=== PATIENT | female | born 1945 | race Caucasian/White ===

== ENCOUNTER → 2016-07-02 | Outpatient (CLI) | payer MEDICARE, OTHER | LOC: GMA 12:52 | PROVIDERS: ATTEND Nurse Practitioner Family | DX: R53.83 Other fatigue (principal) ==

== ENCOUNTER → 2016-08-01 | Outpatient (CLI) | payer MEDICARE, OTHER ==
--- NOTE | 2016-08-01 16:15 | US ---
EXAM DESCRIPTION: MAMMO BREAST DIAGNOSTIC BILATERAL; US BREAST UNILATERAL Images were reviewed with R2 computer-aided detection. CLINICAL HISTORY: Mother with history of breast malignancy. Palpable left axillary tail nodule. COMPARISON: 2014. FINDINGS: Glandular tissue is nodular in contour and of the increased mammographic density. Focal increasing asymmetry left breast 1 o'clock retroglandular tissue is further evaluated with true lateral and spot compression films. Mammographic asymmetry partially effaces with morphology more consistent with the 2014 exam. Directed ultrasound exam demonstrates the calcification within the right breast and adjacent normal fibroglandular tissue. No sonographically suspicious finding. In the region of clinical concern in the axilla, the palpable area corresponds to a subcutaneous gland whose duct is visible extending to the epidermis and appears slightly enlarged. Associated complication is not shown. IMPRESSION: Benign exam. No mammographic or sonographic evidence for malignancy. Mammographic asymmetry left breast 12 o'clock corresponds to normal fibroglandular tissue and appears grossly stable on spot films since 2014. The region of clinical concern appears related to an a blocked sweat gland or hair follicle. The patient was advised to place a warm compress to the area several times a day. No complication is noted. BIRAD CATEGORY: 2 BENIGN RECOMMENDATION: FOLLOW-UP: Routine annual mammography. Findings and recommendations were communicated to the patient by the technologist. According to the [employer], yearly mammograms are recommended starting at age 40 and continuing as long as a woman is in good health. Any breast change noted on a breast self-exam should be reported promptly to the patient's healthcare provider. Breast MRI is recommended for women with an approximately 20-25% or greater lifetime risk of breast cancer, including women with a strong family history of breast or ovarian cancer and women who have been treated for Hodgkin's disease. Electronically signed by: Sharon Wilson 08/01/2016 16:13
== END | disposition home or self-care (01) ==
LOC: MAMMO 14:29
PROVIDERS: ATTEND Nurse Practitioner Family
DX: N63 Unspecified lump in breast (principal)
CPT/HCPCS: 76641; 77051; G0204

== ENCOUNTER 2018-01-24 03:29 | Emergency (ER) | payer MEDICARE, OTHER ==
[2018-01-24] MEDS ORDERED: AMIODARONE HCL 150 MG/3 ML VIAL IVPB ONE ×2 (03:37→03:57)
[2018-01-24] MEDS ORDERED: DEXTROSE 5% 100ML 100 ML IVPB ONE ×2 (03:38→03:57)
[2018-01-24] MEDS ORDERED: DEXTROSE 5% 250ML 0 ML ONE (03:38)
[2018-01-24] MEDS ORDERED: AMIODARONE IV (LOAD) 150 MG in DEXTROSE 5% 100ML 100 ML IVPB ONE ×2 (03:44→04:10)
[2018-01-24] MEDS ORDERED: MIDAZOLAM INJ 5 MG/5 ML VIAL ONE (03:57)
[2018-01-24] MEDS ORDERED: FUROSEMIDE INJ 40 MG/4 ML VIAL ONE (04:04)
[2018-01-24] MEDS ORDERED: FUROSEMIDE INJ 40 MG/4 ML VIAL IV ONE ×2 (04:10→08:18)
--- NOTE | 2018-01-24 04:23 | ED.PDOC ---
History of Present Illness - General Source: patient, family Exam Limitations: clinical condition - History of Present Illness Initial Comments: patient comes in saying with sudden onset of severe shortness of breath. Patient had been in her usual health yesterday evening with no cough, congestion , fever, or chills. She had no pedal edema and no chest pain. Patient was resting when suddenly sat up and could not breathe. The patient became diaphoretic with some associated nausea but no chest pain. Patient has never felt like this before and has no respiratory diseases that her or her are aware of. Patient has no coronary artery disease. Patient smoked for a couple of years in her youth but not since and has no history of COPD. Timing/Duration: 1/2 hour Severity: severe Activities at Onset: rest Possible Cause: no prior episodes Improving Factors: nothing Worsening Factors: nothing Associated Symptoms: lightheadedness Respiratory Risk Factors: no cause identified <KHADIJAH PHAM - Last Filed: 01/24/18 06:48> <Reuben Rivera - Last Filed: 01/24/18 08:57> - General Chief Complaint: Respiratory Problem Stated Complaint: shortness of breath Time Seen by Provider: 01/24/18 04:10 - History of Present Illness Allergies/Adverse Reactions: Allergies Prochlorperazine [From Compazine] Allergy (Verified 01/24/18 03:39) Home Medications: Ambulatory Orders Amlodipine Besylate 5 mg PO DAILY 01/24/18 Atorvastatin Calcium [Lipitor] 20 mg PO DAILY 01/24/18 BuPROPion XL [Wellbutrin XL] 150 mg PO DAILY 01/24/18 Bupropion HCl [Wellbutrin Xl] 300 mg PO DAILY 01/24/18 Estradiol 1 mg PO DAILY 01/24/18 Lisinopril 40 mg PO DAILY 01/24/18 Mirtazapine 45 mg PO DAILY 01/24/18 Risperidone 2 mg PO BEDTIME 01/24/18 Saxagliptin-Metformin HCl [Kombiglyze Xr 5-1000 mg] 5 - 1,000 mg PO DAILY Review of Systems - Review of Systems Constitutional: States: diaphoresis, weakness EENTM: States: no symptoms reported Respiratory: States: short of breath Cardiology: Denies: chest pain, edema, palpitations Gastrointestinal/Abdominal: States: no symptoms reported, constipation, diarrhea , nausea. Denies: vomiting Genitourinary: States: no symptoms reported Musculoskeletal: States: no symptoms reported Skin: States: no symptoms reported Neurological: States: no symptoms reported <KHADIJAH PHAM - Last Filed: 01/24/18 06:48> Past Medical History (General) - Patient Medical History Hx Stroke: No Hx of COPD: No Hx Cardiac Disorders: No Hx Congestive Heart Failure: No Hx Hypertension: No Hx Thyroid Disease: No Hx Diabetes: Yes <KHADIJAH PHAM - Last Filed: 01/24/18 06:48> Family Medical History - Family History Mother Family History: Unknown <KHADIJAH PHAM - Last Filed: 01/24/18 06:48> Physical Exam - Physical Exam General Appearance: Frail, Obvious distress, Ill Appearing Eyes, Ears, Nose, Throat Exam: PERRL/EOMI, normal ENT inspection, TMs normal Neck: non-tender, full range of motion, supple, normal inspection Respiratory: chest non-tender, crackles - in all lung fitzgerald worse at bilateral bases Cardiovascular/Chest: tachycardia Peripheral Pulses: radial,right: 2+, radial,left: 2+ Gastrointestinal/Abdominal: normal bowel sounds, non tender, soft Neurologic: alert, oriented x 3 <KHADIJAH PHAM - Last Filed: 01/24/18 06:48> Progress - Progress Progress: 01/24/18 04:24 On arrival patient had HR 148 in respiratory distress with runs of Vtach. Patient was diaphoretic and severely short of breath. EKG showed runs of Vtach with SVT. Carotid massage and sahara robert was attempted while IV access and monitoring was obtained. Amiodorone 150 mg was ordered and started. However, the patient sat up suddenly and pulled out her IV with approximately half the medication going in. Patient had IV restarted and another 150 mg ordered and pads were placed for possible cardioversion if needed. HR began to slow to 120 and was sinus tachycardia. Lasix 40 mg IV was ordered and given. Chest Xray was obtained and showed pulmonary edema. Patient began to improve with HR of 126 and O2 sats in the high 80s to 90 on NRB. 01/24/18 04:37 D-Dimer was called back and was elevated. Patient is improving but still not stable enough to go to CT scan. 01/24/18 04:55 01/24/18 06:33 Patient doing much better. O2 sats 90%, HR 88, and 2 L of urine output with lungs with crackles at the bases only Will proceed with CT scan for possible PE 01/24/18 06:48 01/24/18 03:42 Telemetry .ONCE EKG Stat Pulse Ox Stat 01/24/18 04:21 Catheter:Brooks QSHIFT 01/24/18 04:46 URINE CULTURE W/COLONY COUNT Stat 01/24/18 06:31 CTA Chest [CT] Stat Laboratory Results WBC 11.7 K/mm3 (4.8-10.8) H 01/24/18 03:42 RBC 4.46 M/mm3 (4.20-5.40) 01/24/18 03:42 Hgb 13.7 gm/dL (12.0-16.0) 01/24/18 03:42 Hct 42.5 % (36.0-47.0) 01/24/18 03:42 MCV 95.3 fl (81.0-99.0) 01/24/18 03:42 MCH 30.6 pg (27.0-31.0) 01/24/18 03:42 MCHC 32.1 g/dL (33.0-37.0) L 01/24/18 03:42 RDW 14.0 % (11.5-14.5) 01/24/18 03:42 Plt Count 283 K/mm3 (130-400) 01/24/18 03:42 MPV 7.8 fl (7.40-10.4) 01/24/18 03:42 Absolute Neuts (auto) 3.70 K/uL (1.8-6.8) 01/24/18 03:42 Absolute Lymphs (auto) 6.70 K/uL (1.0-3.4) H 01/24/18 03:42 Absolute Monos (auto) 1.00 K/uL (0.2-0.8) H 01/24/18 03:42 Absolute Eos (auto) 0.20 K/uL (0.0-0.4) 01/24/18 03:42 Absolute Basos (auto) 0.10 K/uL (0.0-0.1) 01/24/18 03:42 Neutrophils % 31.8 % (42.0-78.0) L 01/24/18 03:42 Lymphocytes % 57.4 % (20.0-50.0) H 01/24/18 03:42 Monocytes % 8.4 % (2.0-9.0) 01/24/18 03:42 Eosinophils % 1.5 % (1.0-5.0) 01/24/18 03:42 Basophils % 0.9 % (0.0-2.0) 01/24/18 03:42 PT 8.9 SECONDS (9.3-10.7) L 01/24/18 03:42 INR < 0.90 (0.9-1.15) L 01/24/18 03:42 PTT (SP) 21.2 SECONDS (21.8-31.6) L 01/24/18 03:42 D-Dimer, Quantitative 1.40 mg/L FEU (0-0.49) H* 01/24/18 03:42 Sodium 143 mmol/L (135-145) 01/24/18 03:42 Potassium 3.6 mmol/L (3.6-5.0) 01/24/18 03:42 Chloride 106 mmol/L (101-111) 01/24/18 03:42 Carbon Dioxide 20 mmol/L (21-31) L 01/24/18 03:42 Anion Gap 20.6 (12-18) H 01/24/18 03:42 BUN 16 mg/dL (7-18) 01/24/18 03:42 Creatinine 0.82 mg/dL (0.6-1.3) 01/24/18 03:42 BUN/Creatinine Ratio 19.5 (10-20) 01/24/18 03:42 Random Glucose 272 mg/dL (70-105) H 01/24/18 03:42 Serum Osmolality 295.8 mOsm/L (275-295) H 01/24/18 03:42 Calcium 8.9 mg/dL (8.4-10.2) 01/24/18 03:42 Magnesium 2.1 mg/dL (1.8-2.5) 01/24/18 03:42 Creatine Kinase 72 IU/L (26-140) 01/24/18 03:42 CK-MB (CK-2) 3.3 ng/mL (0.0-4.4) 01/24/18 03:42 CK-MB (CK-2) % Not Reportable 01/24/18 03:42 Troponin I < 0.02 ng/mL (0.01-0.05) 01/24/18 03:42 B-Natriuretic Peptide 1020.0 pg/ml (0-100) H* 01/24/18 03:42 Urine Color Yellow (Yellow) 01/24/18 04:46 Urine Appearance Sl cloudy (Clear) 01/24/18 04:46 Urine pH 5.5 (4.5-7.8) 01/24/18 04:46 Ur Specific [place] 1.020 (1.005-1.030) 01/24/18 04:46 Urine Protein 30 mg/dL 01/24/18 04:46 Urine Glucose (UA) 100 mg/dL (Negative) H 01/24/18 04:46 Urine Ketones Negative mg/dL (NEGATIVE) 01/24/18 04:46 Urine Blood Negative (Negative) 01/24/18 04:46 Urine Nitrite Negative 01/24/18 04:46 Urine Bilirubin Negative (NEGATIVE) 01/24/18 04:46 Urine Urobilinogen 0.2 mg/dL (0.2-1.0) 01/24/18 04:46 Ur Leukocyte Esterase Trace (Negative) H 01/24/18 04:46 Urine RBC 0-1 /hpf 01/24/18 04:46 Urine WBC 10-20 /hpf H 01/24/18 04:46 Ur Epithelial Cells 20-30 /hpf 01/24/18 04:46 Urine Bacteria 3+ H 01/24/18 04:46 Patient Name: MICHELLE GOODWIN Gender: Female Date of : 1945 Referring Physician: KHADIJAH PHAM Organization: [facility] Accession Number: [id number] Requested Date: January 24, 2018 03:40 Report Status: Final Requested Procedure: 1 Procedure Description: Chest,1 View Modality: CR Findings Reporting MD: Romel Trejo Fellow MD: Not available Dictation Time: Machine Bander And Cellophaner Helper: Not available Quality Control Microbiology Supervisor Date: EXAM DESCRIPTION: Single view of the chest CLINICAL HISTORY: shortness of breath COMPARISON: 09/11/2008 FINDINGS: Single frontal view of the chest. The cardiomediastinal silhouette has normal size and contour. Diffuse bilateral interstitial and alveolar opacities with confluence airspace opacities in the lung bases. No pneumothorax. Leads overlie the chest. Postoperative change of the thoracic and lumbar spine. Upper abdominal soft tissues are unremarkable. IMPRESSION: 1. Bilateral interstitial and alveolar opacities. These findings could be seen with pulmonary edema. Underlying pneumonic process not excluded. Continued radiographic follow-up recommended. Electronically signed by: Romel Trejo 01/24/2018 4:22 AM <KHADIJAH PHAM - Last Filed: 01/24/18 06:48> - Progress Progress: 01/24/18 08:48 the patient is a 72-year-old female presenting to the emergency room secondary to acute onset shortness of breath with acute respiratory distress due to acute onset pulmonary edema with background right middle lobe pneumonia. The patient has improved significantly with oxygenation and diuresis. She has diuresed approximately 2-1/2 L since her arrival here. She is now able to lie back almost flat without getting significantly short of breath. She still does have significant rales at the bases and at the right middle lobe. She is breathing much more easily and respiratory distress has improved greatly. Blood culture has been performed. Second set of cardiac enzymes are being performed to make sure we are not missing an acute DE. She is on a heparin drip for right now. She has had no chest pain or palpitations throughout the whole time. No further doses of amiodarone have been required. She does have a mild sinus tachycardia. Repeat EKG shows sinus tachycardia with left atrial dilation and poor R-wave progression in anterior leads as well as RSR prime in lateral leads. This is likely most consistent with a left bundle branch block. No definitive acute evidence of ischemia. We have no previous EKGs to compare to. The patient is being transferred for higher level of care. She would benefit from being evaluated by cardiology as her presentation is obviously significantly different than her known previous cardiac pathology. additionally as per Dr. Pham's note the patient did originally presented with episodes of V. tach and SVT. It is uncertain if the arrhythmia caused the patient's decompensation or if the hypoxia caused the arrhythmia. critical care time spent by me on this patient for respiratory distress, pulmonary edema and pneumonia with near respiratory failure, including time spent with counseling of the patient and her family and in making arrangements for transfer to higher level of care is 40 minutes. 01/24/18 08:54 - Results/Orders Results/Orders: CT angiogram of the chest shows a right middle lobe pneumonia, cardiomegaly with small pericardial effusion, no definable acute aortic pathology, diffuse pulmonary edema, no evidence of pulmonary emboli. <Reuben Rivera - Last Filed: 01/24/18 08:57> Departure <KHADIJAH PHAM - Last Filed: 01/24/18 06:48> <Reuben Rivera - Last Filed: 01/24/18 08:57> - Departure Clinical Impression: Paroxysmal SVT (supraventricular tachycardia), V-tach, Respiratory distress, Acute pulmonary edema, Cystitis Right middle lobe pneumonia Qualifiers: Pneumonia type: due to unspecified organism Qualified Code(s): J18.1 - Lobar pneumonia, unspecified organism Disposition: Transfer to Hospital Home Medications: Ambulatory Orders Amlodipine Besylate 5 mg PO DAILY 01/24/18 Atorvastatin Calcium [Lipitor] 20 mg PO DAILY 01/24/18 BuPROPion XL [Wellbutrin XL] 150 mg PO DAILY 01/24/18 Bupropion HCl [Wellbutrin Xl] 300 mg PO DAILY 01/24/18 Estradiol 1 mg PO DAILY 01/24/18 Lisinopril 40 mg PO DAILY 01/24/18 Mirtazapine 45 mg PO DAILY 01/24/18 Risperidone 2 mg PO BEDTIME 01/24/18 Saxagliptin-Metformin HCl [Kombiglyze Xr 5-1000 mg] 5 - 1,000 mg PO DAILY Critical Care Note - Critical Care Note Total Time (mins): 75 Comments: Patient had doctor at bedside for first 30 min of arrival and subsequently >70 directly associated with her care. She was in respiratory distress and needed immediate assistance and medical treatment to prevent cardiovascular collapse. <KHADIJAH PHAM - Last Filed: 01/24/18 06:48>
[2018-01-24] MEDS ORDERED: HEPARIN SODIUM (PORCINE) 5,000 U/ML VIAL IV ONE (04:34)
[2018-01-24] MEDS ORDERED: HEPARIN PREMIX 25,000 UNITS in PREMIX BAG 1 BAG IVS ONE (05:16)
[2018-01-24] MEDS ORDERED: HEPARIN PREMIX 500 ML ONE (05:20)
[2018-01-24] MEDS ORDERED: ONDANSETRON ODT 8 MG TAB ONE (06:17)
[2018-01-24] MEDS ORDERED: ONDANSETRON ODT 8 MG TAB SL ONE (06:18)
--- NOTE | 2018-01-24 08:06 | CT ---
EXAM DESCRIPTION: CTA Chest CLINICAL HISTORY: 72 years, Female, elevated D dimer with SOB COMPARISON: Chest x-ray January 24, 2019 TECHNIQUE: CT pulmonary angiography is performed with thin-section multi detector technique during rapid bolus administration of routine adult dose of nonionic iodinated IV contrast media. Multiplanar reformatted images are reviewed along with source images and maximum intensity projection three dimensional images which were created on a separate dedicated workstation and are stored in the patient's medical record. FINDINGS: Normal enhancement of pulmonary arteries. Normal enhancement of cardiac chambers. The heart is enlarged. Small pericardial effusion. Early enhancement of the aorta is negative for aneurysm or dissection. Lung window images reveal extensive bilateral pulmonary infiltrates. In the upper lobes, the infiltrates are more groundglass in density suggesting pulmonary edema. However there is dense consolidation in the right middle lobe more consistent with pneumonia. Patchy infiltrates in the lung bases may be a combination of pneumonia and pulmonary edema. Follow-up with chest x-rays after therapy. Small pericardial effusion is also present. Small pleural effusions are present bilaterally. In the upper abdomen, upper abdominal viscera are unremarkable. No chest wall mass or rib fracture. No axillary or lower cervical adenopathy. Dextroscoliosis is seen with multilevel discal calcification. Orthopedic hardware is seen in the T-spine. Coronal and sagittal reformatted MIP images confirm normal pulmonary arterial enhancement. Oblique MIP images confirm normal enhancement of the pulmonary arteries. IMPRESSION: Negative for evidence of pulmonary embolic disease. Large heart with extensive bilateral pulmonary infiltrates/edema. See above. This exam was performed according to our departmental dose-optimization program, which includes automated exposure control, adjustment of the mA and/or kV according to patient size and/or use of iterative reconstruction technique. Total DLP equals 368.14 mGycm. Electronically signed by: Mannie Paz MD 01/24/2018 8:04 AM CDT
[2018-01-24] MEDS ORDERED: AZITHROMYCIN IV 500 MG in SODIUM CHLORIDE 0.9% 250ML 250 ML IVPB ONE (08:18)
[2018-01-24] MEDS ORDERED: cefTRIAXone SODIUM 1 GM VIAL IM ONE (08:18)
[2018-01-24] MEDS ORDERED: PIPERACILLIN/TAZOBACTAM 3.375 GM in SODIUM CHLORIDE 0.9% 100ML 100 ML IVPB ONE (08:22)
[2018-01-24] MEDS ORDERED: SODIUM CHLORIDE 0.9% 100ML 100 ML IVPB ONE (08:31)
[2018-01-24] MEDS ORDERED: PIPERACILLIN/TAZOBACTAM 3.375 GM VIAL IVPB ONE (08:31)
[2018-01-24 09:13] VITALS: O2SAT 93
[2018-01-24 09:37] VITALS: BP 129/68; TEMP 99.6
== END 2018-01-24 09:36 | disposition short-term general hospital (02) ==
LOC: ER 03:29
DX: J18.1 Lobar pneumonia, unspecified organism (principal); R06.03 Acute respiratory distress; J81.1 Chronic pulmonary edema; I47.1 Supraventricular tachycardia; I47.2 Ventricular tachycardia; N30.00 Acute cystitis without hematuria; R11.0 Nausea; R53.1 Weakness; E11.9 Type 2 diabetes mellitus without complications; Z87.891 Personal history of nicotine dependence; Z79.84 Long term (current) use of oral hypoglycemic drugs
CPT/HCPCS: 36415; 71045; 71275; 80048; 81001; 82550; 82553; 83605; 83880; 84484; 85025; 85379; 85610; 85730; 87040; 87086; 93005; J0282; J1644; J1940; J2543; J7050; J7060

== ENCOUNTER → 2018-05-07 | Outpatient (CLI) | payer MEDICARE, OTHER | LOC: GMAE 11:03 | PROVIDERS: ATTEND Family Medicine | DX: I10 Essential (primary) hypertension (principal); R94.5 Abnormal results of liver function studies; E11.9 Type 2 diabetes mellitus without complications ==

== ENCOUNTER → 2018-05-11 | Outpatient (CLI) | payer MEDICARE, OTHER ==
--- NOTE | 2018-05-11 08:56 | US ---
EXAM DESCRIPTION: Liver CLINICAL HISTORY: 72 years Female, ABNORMAL LIVER FUNCTION STUDY COMPARISON: None. FINDINGS: The aorta is normal in caliber gradually tapering to a diameter of 1.3 cm. Normal appearance of the pancreas and inferior vena cava. Liver is homogeneous in texture. No focal liver lesion. Liver length of 17.6 cm is at the upper limits of normal. Normal appearance of hepatic veins and portal vein. No bile duct dilatation. Right kidney measures 9.0 cm in length with normal cortical thickness and echogenicity and no hydronephrosis. Gallbladder surgically absent. Common duct is normal in caliber measuring 3 mm. IMPRESSION: No acute upper abdominal process. Electronically signed by: Mannie Paz MD 05/11/2018 8:55 AM TRIM MOUNTER
== END ==
LOC: US 08:00
PROVIDERS: ATTEND Family Medicine
DX: R94.5 Abnormal results of liver function studies (principal)

== ENCOUNTER → 2018-06-25 | Outpatient (CLI) | payer MEDICARE, OTHER | LOC: GMAE 12:06 | PROVIDERS: ATTEND Family Medicine | DX: E11.9 Type 2 diabetes mellitus without complications (principal) ==

== ENCOUNTER → 2019-04-08 | Outpatient (CLI) | payer MEDICARE, OTHER | LOC: GMAE 14:53 | PROVIDERS: ATTEND Family Medicine | DX: R53.83 Other fatigue (principal); E83.51 Hypocalcemia ==

== ENCOUNTER → 2020-08-23 | Outpatient (CLI) | payer MEDICARE, OTHER | LOC: GMAE 14:45 | PROVIDERS: ATTEND Family Medicine | DX: I10 Essential (primary) hypertension (principal); E11.9 Type 2 diabetes mellitus without complications; E78.2 Mixed hyperlipidemia ==